=== PATIENT | female | born 1980 | race Caucasian/White ===

== ENCOUNTER 2016-10-04 08:52 | Day surgery (SDC) | payer OTHER ==
[~2016-10-04] VITALS: Ht 160 cm; Wt 68.0 kg
[~2016-10-04 08:52] MED LIST: Atarax,Vistaril PO; BACTRIM,SEPT1 TABLET PO; CELEXA20 MG PO; CLONAZEPAM0.5 MG PO; Celexa PO; Desyrel PO; KLONOPIN0.5 M1 PO; METFORMIN HCL500 MG PO; PAXIL20 MG PO; ZOFRAN4 MG PO; ZOLOFT25 MG PO
[2016-10-04 09:50] VITALS: BP 109/71
[2016-10-04] MEDS ORDERED: MOTRIN800 MG PO (11:09)
[2016-10-04] MEDS ORDERED: REPREXAIN 5-201 EACH PO (11:19)
[2016-10-04 12:10] VITALS: BP 109/72
[2016-10-04 13:10] VITALS: BP 109/72
[2016-10-04 14:00] VITALS: BP 108/62
== END 2016-10-04 14:15 | disposition home or self-care (01) ==
LOC: SDC 08:52
PROC: 10D17ZZ Extraction of Products of Conception, Retained, Via Natural or Artificial Opening (ICD-10-PCS; principal; 2016-10-04)
DX: O02.1 Missed abortion (principal)
CPT/HCPCS: 86900; 86901; 88305; J1100; J1885; J2250; J2405; J2790; J3010